=== PATIENT | female | born 2000 ===

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

== ENCOUNTER 2021-10-06 15:39 | Inpatient (IN) | payer OTHER ==
[~2021-10-06] VITALS: Ht 157.5 cm; Wt 49.4 kg
[2021-10-06 17:58] LABS: Source, Urine Clean Catch
[2021-10-06 18:15] LABS: Appearance, Urine Hazy (Clear); Bilirubin, Urine Neg (Neg); Blood, Urine 1+ (Neg); Color, Urine Yellow (P-Yellow); Glucose Qualitative, Urine Neg (Neg); Ketones, Urine Neg (Neg); Leukocyte Esterase, Urine 2+ (Neg); Nitrite, Urine Pos (Neg); Protein, Urine 2+ (Neg); Specific Gravity, Urine 1.015 (1.003-1.022); Urobilinogen, Urine NORM (Normal)
[2021-10-06 18:25] LABS: BASOPHILS ABSOLUTE AUTO 0.01 K/mm3 (0.00-0.23); BASOPHILS PERCENT AUTO 0 % (0-2); EOSINOPHILS PERCENT AUTO 0 % (0-6); Hematocrit 40.6 % (33.0-51.0); Hemoglobin 13.6 g/dL (11.5-16.0); IMMATURE GRAN ABSOLUTE AUTO 0.03 K/mm3 (0.00-0.10); IMMATURE GRAN PERCENT AUTO 0 % (0-1); LYMPHOCYTES ABSOLUTE AUTO 0.58 K/mm3 (0.84-5.20); LYMPHOCYTES PERCENT AUTO 5 % (21-46); MONOCYTES ABSOLUTE AUTO 0.49 K/mm3 (0.16-1.47); MONOCYTES PERCENT AUTO 4 % (4-13); Mean Corpuscular HGB 29.5 pg (26.0-34.0); Mean Corpuscular HGB Conc 33.5 g/dL (31.5-36.5); Mean Corpuscular Volume 88 fL (80-100); Mean Platelet Volume 9.9 fL (9.1-12.4); NEUTROPHILS ABSOLUTE AUTO 11.27 K/mm3 (1.96-9.15); NEUTROPHILS PERCENT AUTO 91 % (41-73); Platelet Count 176 K/mm3 (150-400); RDW Standard Deviation 42.1 fL (35.1-46.3); Red Blood Cell Count 4.61 M/mm3 (3.80-5.20); White Blood Cell Count 12.38 K/mm3 (4.00-11.30)
[2021-10-06 18:41] LABS: Alanine Aminotransfer (ALT/SGP 34 U/L (12-78); Albumin, Blood 3.5 g/dL (3.4-5.0); Albumin/Globulin Ratio 0.9 (0.8-1.8); Alk Phos 138 U/L (50-136); Anion Gap 8 mmol/L (6-16); Aspartate Aminotrans (AST/SGOT 28 U/L (12-37); Bilirubin, Total 0.8 mg/dL (0.1-1.0); Blood Urea Nitrogen 8 mg/dL (8-24); Bun/Creatinine Ratio 15.4 (12.0-20.0); CO2, Blood 26 mmol/L (21-32); Calcium, Blood 9.3 mg/dL (8.5-10.1); Chloride, Blood 101 mmol/L (98-108); Creatinine, Blood 0.52 mg/dL (0.40-1.00); Globulin, Blood 4.1 g/dL (2.2-4.0); Glomerular Filtration Rate >60 (60-); Glucose, Blood 112 mg/dL (70-99); Potassium, Blood 4.1 mmol/L (3.5-5.5); Sodium, Blood 135 mmol/L (136-145); Total Protein, Blood 7.6 g/dL (6.4-8.2)
[2021-10-06 18:53] LABS: White Blood Cells, Urine 25-50 /hpf (0-5)
[2021-10-06 18:54] LABS: Bacteria Many /hpf; Squamous Epithelial Cells Few /hpf (Few)
[2021-10-06 19:36] LABS: U Amphetamine Screen DETECTED
[2021-10-06 19:37] LABS: U Barbituate Screen Not Detected; U Benzodiazapine Screen Not Detected; U Buprenorphine Screen Not Detected; U Cannabinoids Screen Not Detected; U Cocaine Screen Not Detected; U Methadone Screen Not Detected; U Methamphetamine Screen DETECTED; U Opiates Screen DETECTED; U Oxycodone Screen Not Detected; U Phencyclidine Screen Not Detected; U Propoxyphene Screen Not Detected
[2021-10-07 06:02] LABS: BASOPHILS ABSOLUTE AUTO 0.02 K/mm3 (0.00-0.23); BASOPHILS PERCENT AUTO 0 % (0-2); EOSINOPHILS PERCENT AUTO 0 % (0-6); Hemoglobin 11.6 g/dL (11.5-16.0); IMMATURE GRAN ABSOLUTE AUTO 0.11 K/mm3 (0.00-0.10); IMMATURE GRAN PERCENT AUTO 1 % (0-1); LYMPHOCYTES ABSOLUTE AUTO 0.56 K/mm3 (0.84-5.20); LYMPHOCYTES PERCENT AUTO 5 % (21-46); MONOCYTES ABSOLUTE AUTO 0.84 K/mm3 (0.16-1.47); MONOCYTES PERCENT AUTO 7 % (4-13); Mean Corpuscular HGB 29.2 pg (26.0-34.0); Mean Corpuscular HGB Conc 33.1 g/dL (31.5-36.5); Mean Corpuscular Volume 88 fL (80-100); Mean Platelet Volume 9.7 fL (9.1-12.4); NEUTROPHILS PERCENT AUTO 87 % (41-73); Platelet Count 138 K/mm3 (150-400); RDW Coefficient Variation 12.9 % (11.7-14.2); RDW Standard Deviation 42.1 fL (35.1-46.3); Red Blood Cell Count 3.97 M/mm3 (3.80-5.20); White Blood Cell Count 11.83 K/mm3 (4.00-11.30)
[2021-10-07 06:33] LABS: Alanine Aminotransfer (ALT/SGP 49 U/L (12-78); Albumin, Blood 2.9 g/dL (3.4-5.0); Albumin/Globulin Ratio 0.9 (0.8-1.8); Alk Phos 151 U/L (50-136); Anion Gap 7 mmol/L (6-16); Aspartate Aminotrans (AST/SGOT 45 U/L (12-37); Bilirubin, Total 0.7 mg/dL (0.1-1.0); Blood Urea Nitrogen 8 mg/dL (8-24); Bun/Creatinine Ratio 15.7 (12.0-20.0); CO2, Blood 24 mmol/L (21-32); Calcium, Blood 8.3 mg/dL (8.5-10.1); Chloride, Blood 106 mmol/L (98-108); Creatinine, Blood 0.51 mg/dL (0.40-1.00); Globulin, Blood 3.3 g/dL (2.2-4.0); Glomerular Filtration Rate >60 (60-); Glucose, Blood 123 mg/dL (70-99); Potassium, Blood 3.5 mmol/L (3.5-5.5); Sodium, Blood 137 mmol/L (136-145); Total Protein, Blood 6.2 g/dL (6.4-8.2)
--- NOTE | 2021-10-07 08:23 | NUR ---
PT WAS NEW ADMISSION FROM ED. ON ARRIVAL PATIENT NOTED TO BE DROWSY BUT AROUSABLE AND WITH TREMORS. PER REPORT PT HAD BECOME VERY UPSET PRIOR TO ARRIVAL TO UNIT DUE TO PATIENTS SIGNIFICANT OTHER NOT BEING ABLE TO STAY AT BEDSIDE. PER REPORT PT AND S/O ARE HOMELESS AND PT UPSET BECAUSE S/O HAS "NO WHERE TO GO." PT SINCE ARRIVAL TO UNIT WITH VERY SELECTIVE RESPONSES AND WILLINGNESS TO ANSWER QUESTIONS. SPEECH WAS LIMITED TO SHORT STATEMETNS SUCH "I NEED TO PEE, TURN THE LIGHTS OFF." THIS RN ATTEMPTED SEVERAL TIMES TO ASSESS PATIENT HOWEVER SHE WOULD JUST LAY IN BED SLEEPING. THEREFORE UNABLE TO OBTAIN AN ADMISSION ASSESSMENT. STATED ON DIFFERENT OCCASIONS THAT SHE IS GOING THROUGH WITHDRAWLS DUE TO TAKING "10 PILLS OF FENTANYL DAILY." ON ARRIVAL TO UNIT HR IN THE 120s. PER DR.GUITIERREZ HURTADO FOR PT HR TO BE IN THE 120s. PT HR INCREASED AND SUSTAINED IN THE 130s-135. DR. CALLAHAN NOTIFIED WITH ORDERS TO INCREASE FLUIDS TO 150ML/HR. PT WITH FEVER 101.2 AT 0355 AND AT THIS TIME PATIENT WILLING TO ANSWER SOME QUESTION IN REGARDS TO ORIENTATION. PT STATED THAT SHE DID NOT KNOW WHY SHE WAS HERE, THOUGHT IT WAS JUNE 2013 AND DID NOT KNOW WHERE SHE WAS. WHEN TRIED TO ASK FURTHER CLARIFYING QUESTIONS PATIENT LAID IN BED "SLEEPING." DR. CALLAHAN AWARE AND PER MD CONTINUE TO MONITOR. PATIENT OVERALL HAD A VERY WITHDRAWN ATTITUDE. SHE HAD NO EYE CONTACT, ANSWERED ONLY THE STATEMENTS MENTIONED ABOVE AND WHEN ASKED IF I COULD DO AN ASSESSMENT SHE DID NOT RESPOND AND WOULD JUST REMAINED CURLED UP IN BED. BED ALARM IN PLACE.
[2021-10-07] MEDS ORDERED: CEFD300 PO (13:52)
[2021-10-07] MEDS ORDERED: VISBIOME 112.51 EACH PO (13:52)
[2021-10-07 19:14] LABS: Anion Gap 10 mmol/L (6-16); Blood Urea Nitrogen 8 mg/dL (8-24); Bun/Creatinine Ratio 15.8 (12.0-20.0); CO2, Blood 24 mmol/L (21-32); Chloride, Blood 101 mmol/L (98-108); Creatinine, Blood 0.51 mg/dL (0.40-1.00); Glomerular Filtration Rate >60 (60-); Glucose, Blood 120 mg/dL (70-99); Potassium, Blood 3.5 mmol/L (3.5-5.5); Sodium, Blood 135 mmol/L (136-145)
--- NOTE | 2021-10-07 19:56 | NUR ---
SHIFT SUMMARY PT A&O X4 T/O SHIFT. PT BEGGING FOR NARC. PAIN MEDICATION T/O SHIFT. BOYFRIEND @ BEDSIDE, BEGGING TO ALLOW BOYFRIEND TO SPEND THE NIGHT W/ PT @ HOSPITAL. BOYFRIEND SEEN YELLING @ PT DUE TO THEIR "CURRENT SITUATION". ASKED TO QUIET DOWN OR WILL HAVE TO LEAVE, BOYFRIEND LEFT. PT UP TO SHOWER THIS SHIFT, HAS STATED SEVERAL TIMES,"I DON'T THINK I CAN DO THIS, I FEEL LIKE I AM DYING." PT C/O PAIN T/O SHIFT. MEDICATED PER EMAR. NS @ 150. VSS. CALL LIGHT W/IN REACH. TELE IN PLACE.
--- NOTE | 2021-10-08 04:46 | NUR ---
SHIFT SUMMARY PT SLEPT FEW HOURS AT BEGINNING OF SHIFT, THEN WOKE UP DEMANDING SNACKS AND MEDICATIONS. PT GIVEN TYLENOL AND FLUIDS WERE CONTINUED. PT PULLED OUT IV IN HER HAND. A NEW IV WAS ATTEMPTED BUT PT MOVED AND IT DID NOT TAKE. PT DOES NOT WANT ANOTHER IV STICK AT THIS TIME. SPOKE TO DR LYNCH AND SHE STS THE PT NEEDS THE IV AND WE CAN TRY AGAIN IN A FEW HOURS. PT REQUESTS JELLO AND HAS EATEN SEVERAL CONTAINERS. PT HAS CALL LIGHT WITHIN HER REACH. WILL CONTINUE TO MONITOR.
--- NOTE | 2021-10-08 05:05 | NUR ---
PT REFUSED MORNING BLOOD DRAW. LAB WILL TRY BACK LATER.
[2021-10-08 08:04] LABS: Hematocrit 34.2 % (33.0-51.0); Hemoglobin 11.2 g/dL (11.5-16.0); Mean Corpuscular HGB 29.2 pg (26.0-34.0); Mean Corpuscular HGB Conc 32.7 g/dL (31.5-36.5); Mean Corpuscular Volume 89 fL (80-100); Platelet Count 141 K/mm3 (150-400); RDW Standard Deviation 42.6 fL (35.1-46.3); Red Blood Cell Count 3.84 M/mm3 (3.80-5.20); White Blood Cell Count 9.45 K/mm3 (4.00-11.30)
[2021-10-08 08:23] LABS: BAND PERCENT MAN 4 % (0-8); BASOPHILS PERCENT MAN 0 % (0-2); EOSINOPHILS PERCENT MAN 0 % (0-6); LYMPHOCYTES ABSOLUTE MAN 1.89 K/mm3 (0.84-5.20); LYMPHOCYTES PERCENT MAN 20 % (21-46); MONOCYTES ABSOLUTE MAN 0.75 K/mm3 (0.16-1.47); MONOCYTES PERCENT MAN 8 % (4-13); SEG NEUTROPHILS PERCENT MAN 68 % (41-73); TOTAL CELLS COUNTED 100
--- NOTE | 2021-10-08 11:15 | NUR ---
DISCHARGE PT DISCHARGED @ THIS TIME. PT A&O X4 AND KWAN @ BEDSIDE DURING DISCHARGE DIRECTION. PT PROVIDED W/ WRITTEN AND VERBAL INFO, VERBALIZED UNDERSTANDING. PT KWAN PROVIDED TRANSPORT, MEDS FAXED INTO [facility]. PT ESCORTED OUT VIA WC BY [facility] TO [facility]. NO IV.
== END 2021-10-08 11:31 | disposition home or self-care (01) | DRG 872 ==
LOC: ER 15:39 → MEDS 15:40 → ENPENDDIS 10-07 15:14 → MEDS 10-07 15:22
PROVIDERS: Physician Assistant; Student in an Organized Health Care Education/Training Program; ADMIT Internal Medicine
DX: A41.51 Sepsis due to Escherichia coli [E. coli] (principal); N12 Tubulo-interstitial nephritis, not specified as acute or chronic; F17.210 Nicotine dependence, cigarettes, uncomplicated; F15.10 Other stimulant abuse, uncomplicated; R51.9 Headache, unspecified; F11.10 Opioid abuse, uncomplicated; Z87.440 Personal history of urinary (tract) infections; Z59.00 Homelessness unspecified
CPT/HCPCS: 36415; 71045; 80048; 80053; 81001; 81025; 83605; 83690; 85025; 87040; 87077; 87086; 87186; 96372; 96374; 96375; 96376; 99284-25; A9270; G0378; J0696; J1650; J1790; J1885; J2405; J3010; J7030